=== PATIENT | female | born 1955 | race Caucasian/White ===

== ENCOUNTER 2025-08-18 08:17 | Inpatient (IN) | payer OTHER ==
[~2025-08-18] VITALS: Ht 154.9 cm; Wt 55.8 kg
[2025-08-18 08:40] LABS: PLATELET COUNT (AUTO) 257 K/uL (150-450); RED BLOOD CELL COUNT(AUTO) 3.71 MIL/uL (4.00-5.20); RED CELL DISTRIBUTION WIDTH 16.7 % (11.5-14.5); WHITE BLOOD COUNT (AUTO) 8.9 K/uL (4.5-11.0)
[2025-08-18] MEDS: METOCLOPRAMIDE HCL 5 MG/ML 2 ML VIAL IVP ONE (08:44)
[2025-08-18] MEDS: PANTOPRAZOLE SODIUM 40 MG/VIAL IVP ONE (08:44)
[2025-08-18] MEDS: SODIUM CHLORIDE 0.9% 1,000 ML IV ONE ×2 (08:44→10:17)
[2025-08-18] MEDS: PANTOPRAZOLE SODIUM 80 MG in SODIUM CHLORIDE 0.9% 100 ML IV SCH ×2 (08:49→17:08)
[2025-08-18 08:53] LABS: CALCIUM, TOTAL 7.5 mg/dL (8.8-10.5); CREATININE 0.72 mg/dL (0.60-1.30); GLOMERULAR FILTR. RATE CALC > 60 mL/min (>60); GLUCOSE,RANDOM 183 mg/dL (70-110); SODIUM SERUM 143 mmol/L (136-145); UREA NITROGEN, BLOOD 20 mg/dL (7-18)
[2025-08-18 09:02] LABS: ASPARTATE AMINOTRANSFERASE 16.0 U/L (15-37); TOTAL PROTEIN, SERUM 5.9 g/dL (6.4-8.2)
[2025-08-18] MEDS: LORazepam 2 MG/ML VIAL IVP ONE (10:52)
[2025-08-18] MEDS: OXYMETAZOLINE HCL 0.05% 15 ML NASAL SPRAY NASAL ONE (11:18)
[2025-08-18 12:03] LABS: APPEARANCE,URINE CLEAR (CLEAR); GLUCOSE, URINE (UA) NEGATIVE (NEGATIVE); LEUKOCYTE ESTERASE ,URINE MODERATE (NEGATIVE); NITRATE,URINE POSITIVE (NEGATIVE); OCCULT BLOOD,URINE NEGATIVE (NEGATIVE); SPECIFIC GRAVITIY, URINE 1.021 (1.003-1.030)
[2025-08-18] MEDS: CefTRIAXone 1 GM/DEXTROSE 50 ML IV ONE (12:32)
[2025-08-18] MEDS ORDERED: ALBU18HF12 IH (13:01)
[2025-08-18] MEDS ORDERED: HYDR-4808 PO (13:01)
[2025-08-18] MEDS ORDERED: LISI-892 PO (13:01)
[2025-08-18] MEDS ORDERED: ACET-2247 PO (13:01)
[2025-08-18] MEDS ORDERED: FLUT12AE20 IH (13:01)
[2025-08-18] MEDS ORDERED: DICL100G60 TP (13:01)
[2025-08-18] MEDS ORDERED: HYDR-4062 PO (13:01)
[2025-08-18] MEDS ORDERED: SENN-376 PO (13:01)
[2025-08-18] MEDS ORDERED: LEVE-71 PO (13:01)
[2025-08-18] MEDS ORDERED: PARO-38 PO (13:01)
[2025-08-18] MEDS ORDERED: MAGN-169 PO (13:01)
[2025-08-18] MEDS ORDERED: APIX5TAB PO (13:01)
[2025-08-18] MEDS ORDERED: MELA3TAB89 PO (13:01)
[2025-08-18] MEDS: BACITRACIN 0.9 GM PACKET OINTMENT TP ONE (13:13)
[2025-08-18] MEDS ORDERED: SODIUM CHLORIDE 0.9% 1,000 ML ONE (14:44)
[2025-08-18] MEDS ORDERED: MAGNESIUM HYDROXIDE SUSPENSION 30 ML UDCUP PO PRN (15:45)
[2025-08-18] MEDS ORDERED: ONDANSETRON HCL 4 MG/2 ML VIAL IVP PRN (15:45)
[2025-08-18] MEDS ORDERED: BISACODYL 10 MG RECTAL RECTAL SUPPOSITORY PR PRN (15:45)
[2025-08-18] MEDS ORDERED: ZOLPIDEM TARTRATE 5 MG TABLET PO PRN (15:45)
[2025-08-18 16:00] VITALS: BP 164/66; PULSE 66; PULSE 72; RESP 21; TEMP 99.8; O2SAT 95
[2025-08-18] MEDS ORDERED: MORPHINE SULFATE 4 MG/ML SYRINGE IVP PRN (16:00)
[2025-08-18 20:00] VITALS: BP 148/50; PULSE 75; RESP 21; TEMP 100.6; O2SAT 95
[2025-08-18] MEDS: DOCUSATE SODIUM 100 MG CAPSULE PO SCH (21:00)
[2025-08-18 21:21] LABS: GLUCOMETER DEV NAME(LOC) ICU.S7; GLUCOSE,POINT OF CARE 146 MG/DL (70-110)
[2025-08-19] VITALS: BP 113/43; PULSE 96; RESP 21; TEMP 99.8; O2SAT 97
[2025-08-19 04:00] VITALS: BP 132/71; PULSE 64; PULSE 97; RESP 24; TEMP 98.9; O2SAT 97
[2025-08-19 06:41] LABS: PLATELET COUNT (AUTO) 196 K/uL (150-450); RED BLOOD CELL COUNT(AUTO) 2.87 MIL/uL (4.00-5.20); RED CELL DISTRIBUTION WIDTH 16.2 % (11.5-14.5); WHITE BLOOD COUNT (AUTO) 8.0 K/uL (4.5-11.0)
[2025-08-19 06:59] LABS: CALCIUM, TOTAL 7.9 mg/dL (8.8-10.5); CREATININE 0.66 mg/dL (0.60-1.30); GLOMERULAR FILTR. RATE CALC > 60 mL/min (>60); GLUCOSE,RANDOM 117 mg/dL (70-110); SODIUM SERUM 140 mmol/L (136-145); UREA NITROGEN, BLOOD 18 mg/dL (7-18)
[2025-08-19 08:00] VITALS: BP 120/96; PULSE 73; PULSE 99; RESP 16; TEMP 98.5; O2SAT 99
[2025-08-19] MEDS: CefTRIAXone 1 GM/DEXTROSE 50 ML IV SCH (08:10)
[2025-08-19] MEDS ORDERED: SODIUM CHLORIDE 0.9% 250 ML IV ONE (08:15)
[2025-08-19] MEDS ORDERED: PANTOPRAZOLE SODIUM 40 MG DR TABLET PO SCH (09:00)
[2025-08-19 12:00] VITALS: BP 93/66; PULSE 69; PULSE 99; RESP 14; TEMP 98.9; O2SAT 97
[2025-08-19 16:41] VITALS: BP 108/55; PULSE 92; RESP 16; TEMP 98.6; O2SAT 98
[2025-08-19] MEDS: ACETAMINOPHEN 325 MG TABLET PO PRN (20:19)
[2025-08-19] MEDS: ETHYL ALCOHOL 62% ANTISEPTIC NASAL SANITIZER 0.6 ML AMPUL NASAL SCH (20:23)
[2025-08-19 20:29] VITALS: BP 99/40; PULSE 94; RESP 18; TEMP 97.3; O2SAT 98
[2025-08-20] VITALS (7 sets, daily range): BP systolic 98–132; BP diastolic 53–78; PULSE 80–96; RESP 17–18; TEMP 97.8–98.6; O2SAT 97–99
[2025-08-20] MEDS: POTASSIUM CHLORIDE 20 MEQ ER TABLET PO PRN (00:34)
[2025-08-20] MEDS: HYDROCODONE/ACETAMINOPHEN 5-325 MG TABLET PO PRN (05:37)
[2025-08-20] MEDS ORDERED: SODIUM CHLORIDE 0.9% 500 ML IV ONE (07:37)
[2025-08-20 07:56] LABS: PLATELET COUNT (AUTO) 202 K/uL (150-450); RED BLOOD CELL COUNT(AUTO) 2.71 MIL/uL (4.00-5.20); RED CELL DISTRIBUTION WIDTH 16.3 % (11.5-14.5); WHITE BLOOD COUNT (AUTO) 9.4 K/uL (4.5-11.0)
[2025-08-20 08:05] LABS: CALCIUM, TOTAL 8.5 mg/dL (8.8-10.5); CREATININE 0.74 mg/dL (0.60-1.30); GLOMERULAR FILTR. RATE CALC > 60 mL/min (>60); GLUCOSE,RANDOM 117 mg/dL (70-110); SODIUM SERUM 140 mmol/L (136-145); UREA NITROGEN, BLOOD 18 mg/dL (7-18)
[2025-08-21 03:39] VITALS: BP 102/53; PULSE 82; RESP 18; TEMP 98.6; O2SAT 97
[2025-08-21 05:59] LABS: PLATELET COUNT (AUTO) 201 K/uL (150-450); RED BLOOD CELL COUNT(AUTO) 2.55 MIL/uL (4.00-5.20); RED CELL DISTRIBUTION WIDTH 16.6 % (11.5-14.5); WHITE BLOOD COUNT (AUTO) 8.5 K/uL (4.5-11.0)
[2025-08-21 06:06] LABS: CALCIUM, TOTAL 8.1 mg/dL (8.8-10.5); CREATININE 0.64 mg/dL (0.60-1.30); GLOMERULAR FILTR. RATE CALC > 60 mL/min (>60); GLUCOSE,RANDOM 103 mg/dL (70-110); SODIUM SERUM 145 mmol/L (136-145); UREA NITROGEN, BLOOD 13 mg/dL (7-18)
[2025-08-21 07:27] VITALS: BP 120/58; PULSE 99; RESP 18; TEMP 99.5; O2SAT 97
[2025-08-21 10:51] VITALS: BP 114/80; PULSE 94; RESP 18; TEMP 99; O2SAT 96
[2025-08-21 14:55] VITALS: BP 125/58; PULSE 102; RESP 19; TEMP 98.2; O2SAT 98
[2025-08-21 19:46] VITALS: BP 107/45; PULSE 103; RESP 18; TEMP 99.3; O2SAT 99
[2025-08-21 23:43] VITALS: BP 113/59; PULSE 89; RESP 18; TEMP 99.9; O2SAT 99
[2025-08-22 04:23] VITALS: BP 122/65; PULSE 90; RESP 18; TEMP 98.8; O2SAT 98
[2025-08-22 07:24] VITALS: BP 102/49; PULSE 92; RESP 18; TEMP 98; O2SAT 97
[2025-08-22] MEDS ORDERED: PROPOFOL 1% 20 ML VIAL IVP ONE (12:00)
[2025-08-22 12:42] LABS: PLATELET COUNT (AUTO) 225 K/uL (150-450); RED BLOOD CELL COUNT(AUTO) 2.60 MIL/uL (4.00-5.20); RED CELL DISTRIBUTION WIDTH 16.5 % (11.5-14.5); WHITE BLOOD COUNT (AUTO) 7.4 K/uL (4.5-11.0)
[2025-08-22] MEDS: SODIUM CHLORIDE 0.9% 1,000 ML IV ONE (13:20)
[2025-08-22 13:32] VITALS: BP 134/62; PULSE 94; RESP 18; TEMP 99.5; O2SAT 97
[2025-08-22 17:27] VITALS: TEMP 99.5
[2025-08-22 20:13] VITALS: BP 138/82; PULSE 97; RESP 18; TEMP 99; O2SAT 97
[2025-08-22] MEDS: PANTOPRAZOLE SODIUM 40 MG/VIAL IVP SCH (20:15)
[2025-08-23 00:43] VITALS: BP 136/77; PULSE 107; RESP 18; TEMP 100.6; O2SAT 97
[2025-08-23 05:36] VITALS: BP 112/55; PULSE 73; RESP 16; TEMP 97.9; O2SAT 98
[2025-08-23] MEDS: SODIUM CHLORIDE 0.9% 1,000 ML IV ONE (07:00)
[2025-08-23 07:12] VITALS: BP 115/51; PULSE 74; RESP 18; TEMP 98; O2SAT 98
[2025-08-23 09:14] LABS: PLATELET COUNT (AUTO) 234 K/uL (150-450); RED BLOOD CELL COUNT(AUTO) 2.58 MIL/uL (4.00-5.20); RED CELL DISTRIBUTION WIDTH 16.8 % (11.5-14.5); WHITE BLOOD COUNT (AUTO) 7.8 K/uL (4.5-11.0)
[2025-08-23 09:32] LABS: LACTIC ACID 0.9 mmol/L (0.4-2.0)
[2025-08-23 11:51] VITALS: BP 122/70; PULSE 70; RESP 18; TEMP 98; O2SAT 95
[2025-08-23 16:31] VITALS: BP 117/66; PULSE 92; RESP 17; TEMP 99; O2SAT 99
[2025-08-23 20:00] VITALS: BP 119/58; PULSE 100; RESP 18; TEMP 97.9; O2SAT 98
[2025-08-24 04:20] VITALS: BP 124/70; PULSE 91; RESP 19; TEMP 98.2; O2SAT 96
[2025-08-24 07:46] VITALS: BP 117/57; PULSE 88; RESP 20; TEMP 98.6; O2SAT 97
[2025-08-24] MEDS ORDERED: SODIUM CHLORIDE 0.9% 500 ML IV ONE (08:15)
[2025-08-24 15:47] VITALS: BP 102/53; PULSE 89; RESP 20; TEMP 99; O2SAT 97
[2025-08-24] MEDS: HEPARIN SODIUM,PORCINE 5,000 UNITS/ML VIAL SQ SCH (17:13)
[2025-08-24 20:06] VITALS: BP 105/59; PULSE 85; RESP 18; TEMP 98.1; O2SAT 96
[2025-08-25 04:15] VITALS: BP 111/83; PULSE 91; RESP 18; TEMP 98.3; O2SAT 97
[2025-08-25 07:46] VITALS: BP 120/61; PULSE 78; RESP 18; TEMP 98.2; O2SAT 97
[2025-08-25 20:49] VITALS: BP 115/63; PULSE 80; RESP 18; TEMP 99.9; O2SAT 97
[2025-08-26 04:20] VITALS: BP 101/85; PULSE 78; RESP 18; TEMP 97.7; O2SAT 100
[2025-08-26 07:46] VITALS: BP 109/95; PULSE 79; RESP 18; TEMP 97.5; O2SAT 100
[2025-08-26 08:56] LABS: PLATELET COUNT (AUTO) 392 K/uL (150-450); RED BLOOD CELL COUNT(AUTO) 2.81 MIL/uL (4.00-5.20); RED CELL DISTRIBUTION WIDTH 16.4 % (11.5-14.5); WHITE BLOOD COUNT (AUTO) 5.7 K/uL (4.5-11.0)
[2025-08-26 09:14] LABS: CALCIUM, TOTAL 8.9 mg/dL (8.8-10.5); CREATININE 0.57 mg/dL (0.60-1.30); GLOMERULAR FILTR. RATE CALC > 60 mL/min (>60); GLUCOSE,RANDOM 106 mg/dL (70-110); SODIUM SERUM 141 mmol/L (136-145); UREA NITROGEN, BLOOD 12 mg/dL (7-18)
[2025-08-26 16:00] VITALS: BP 120/77; PULSE 80; RESP 16; TEMP 98.1; O2SAT 100
[2025-08-26 21:07] VITALS: BP 124/53; PULSE 88; RESP 18; TEMP 97.7; O2SAT 100
[2025-08-27 04:32] VITALS: BP 119/65; PULSE 73; RESP 18; TEMP 98.1; O2SAT 100
[2025-08-27 07:30] LABS: PLATELET COUNT (AUTO) 430 K/uL (150-450); RED BLOOD CELL COUNT(AUTO) 2.78 MIL/uL (4.00-5.20); RED CELL DISTRIBUTION WIDTH 16.4 % (11.5-14.5); WHITE BLOOD COUNT (AUTO) 6.5 K/uL (4.5-11.0)
[2025-08-27 07:38] VITALS: BP 105/62; PULSE 76; RESP 18; TEMP 98.2; O2SAT 98
[2025-08-27 07:41] LABS: CALCIUM, TOTAL 8.7 mg/dL (8.8-10.5); CREATININE 0.52 mg/dL (0.60-1.30); GLOMERULAR FILTR. RATE CALC > 60 mL/min (>60); GLUCOSE,RANDOM 100 mg/dL (70-110); SODIUM SERUM 140 mmol/L (136-145); UREA NITROGEN, BLOOD 13 mg/dL (7-18)
[2025-08-27 13:11] LABS: PLATELET COUNT (AUTO) 430 K/uL (150-450); RED BLOOD CELL COUNT(AUTO) 2.76 MIL/uL (4.00-5.20); RED CELL DISTRIBUTION WIDTH 16.5 % (11.5-14.5); WHITE BLOOD COUNT (AUTO) 4.5 K/uL (4.5-11.0)
[2025-08-27] MEDS: FOLIC ACID/VIT B COMPLEX AND C TABLET PO SCH (14:00)
[2025-08-27] MEDS: FERROUS GLUCONATE 324 MG TABLET PO SCH (14:00)
[2025-08-27 16:00] VITALS: BP 111/65; PULSE 75; RESP 18; TEMP 98.4; O2SAT 97
[2025-08-27 19:26] VITALS: BP 100/62; PULSE 82; RESP 18; TEMP 98.1; O2SAT 96
[2025-08-28 04:16] VITALS: BP 126/69; PULSE 79; RESP 18; TEMP 98.1; O2SAT 96
[2025-08-28 08:00] VITALS: BP 133/75; PULSE 82; RESP 19; TEMP 98.1; O2SAT 99
[2025-08-28 09:30] LABS: PLATELET COUNT (AUTO) 483 K/uL (150-450); RED BLOOD CELL COUNT(AUTO) 2.88 MIL/uL (4.00-5.20); RED CELL DISTRIBUTION WIDTH 16.4 % (11.5-14.5); WHITE BLOOD COUNT (AUTO) 4.9 K/uL (4.5-11.0)
[2025-08-28 12:00] VITALS: BP 93/53; RESP 18; O2SAT 99
[2025-08-28] MEDS: PB/HYOSCY/ATR/SCOP/LIDO/MAALOX 55 ML BOTTLE PO ONE (17:24)
[2025-08-28 19:40] VITALS: BP 127/66; PULSE 81; RESP 18; TEMP 98.1; O2SAT 98
[2025-08-29 04:53] VITALS: BP 125/60; PULSE 69; RESP 18; TEMP 97.7; O2SAT 99
[2025-08-29 07:51] VITALS: BP 129/77; PULSE 86; RESP 18; TEMP 97.9; O2SAT 97
[2025-08-29 16:57] VITALS: BP 126/60; PULSE 75; RESP 17; TEMP 98.1; O2SAT 99
[2025-08-29 19:49] VITALS: BP 111/57; PULSE 75; RESP 17; TEMP 98.9; O2SAT 98
[2025-08-29 20:00] VITALS: BP 106/60; PULSE 83; RESP 20; TEMP 98.2; O2SAT 98
[2025-08-30 08:35] VITALS: BP 117/63; PULSE 77; RESP 18; TEMP 98.2; O2SAT 98
[2025-08-30 15:36] VITALS: BP 123/79; PULSE 77; RESP 18; TEMP 98.2; O2SAT 97
[2025-08-30 21:05] VITALS: BP 131/71; PULSE 76; RESP 18; TEMP 98.1; O2SAT 98
[2025-08-31 04:55] VITALS: BP 143/75; PULSE 63; RESP 17; TEMP 97.7; O2SAT 100
[2025-08-31 09:19] VITALS: BP 107/54; PULSE 68; RESP 18; TEMP 97.9; O2SAT 100
[2025-08-31 16:00] VITALS: BP 121/61; PULSE 73; RESP 19; TEMP 98.2; O2SAT 97
[2025-08-31 20:29] VITALS: BP 123/72; PULSE 80; RESP 18; TEMP 98.4; O2SAT 99
[2025-09-01 05:42] VITALS: BP 122/74; PULSE 87; RESP 18; TEMP 98.1; O2SAT 99
[2025-09-01 08:00] VITALS: BP 133/93; PULSE 80; RESP 19; TEMP 98.4; O2SAT 100
[2025-09-01 16:00] VITALS: BP 114/61; PULSE 82; RESP 18; TEMP 98.1; O2SAT 100
[2025-09-01 20:26] VITALS: BP 114/71; PULSE 76; RESP 18; TEMP 97.9; O2SAT 97
[2025-09-02 04:47] VITALS: BP 110/67; PULSE 80; RESP 19; TEMP 98.2; O2SAT 97
[2025-09-02 07:42] VITALS: BP 138/83; PULSE 73; RESP 20; TEMP 98.2; O2SAT 99
[2025-09-02 15:33] VITALS: BP 95/65; PULSE 86; RESP 18; TEMP 98.1; O2SAT 97
[2025-09-02 20:00] VITALS: BP 102/64; PULSE 85; RESP 18; TEMP 97.7; O2SAT 97
[2025-09-03 08:00] VITALS: BP 118/76; PULSE 80; RESP 19; TEMP 98.1; O2SAT 99
[2025-09-03] MEDS ORDERED: FOLI0.8T54 PO (12:01)
[2025-09-03] MEDS ORDERED: FERR324T23 PO (12:01)
[2025-09-03] MEDS ORDERED: PANT-31 PO (12:02)
== END 2025-09-03 15:19 | DRG 377 ==
LOC: EMS 08:19 → EDH 10:40 → ICU 14:25 → 5N 08-19 16:30 → 6S 08-23 16:14 → 4E 08-29 21:10
PROVIDERS: ADMIT Internal Medicine; ATTEND Internal Medicine
PROC: 0DJ08ZZ Inspection of Upper Intestinal Tract, Via Natural or Artificial Opening Endoscopic (ICD-10-PCS; principal; 2025-08-22 11:05)
DX: K29.61 Other gastritis with bleeding (principal); R57.8 Other shock; E44.0 Moderate protein-calorie malnutrition; R56.9 Unspecified convulsions; N39.0 Urinary tract infection, site not specified; K25.4 Chronic or unspecified gastric ulcer with hemorrhage; Z79.01 Long term (current) use of anticoagulants; I69.30 Unspecified sequelae of cerebral infarction; I10 Essential (primary) hypertension; J44.89 Other specified chronic obstructive pulmonary disease; F32.A Depression, unspecified; K44.9 Diaphragmatic hernia without obstruction or gangrene; E78.00 Pure hypercholesterolemia, unspecified; F41.9 Anxiety disorder, unspecified; R04.0 Epistaxis; R79.89 Other specified abnormal findings of blood chemistry; I69.398 Other sequelae of cerebral infarction; Z86.718 Personal history of other venous thrombosis and embolism; Z85.51 Personal history of malignant neoplasm of bladder; Z68.23 Body mass index [BMI] 23.0-23.9, adult; Z88.2 Allergy status to sulfonamides; Z91.040 Latex allergy status; Z91.041 Radiographic dye allergy status; Z92.21 Personal history of antineoplastic chemotherapy; Z92.3 Personal history of irradiation; Z98.2 Presence of cerebrospinal fluid drainage device; Z79.899 Other long term (current) drug therapy
CPT/HCPCS: 51702; 71045; 80048; 80076; 81001; 82962; 83605; 83690; 83735; 84145; 85014; 85018; 85025; 85610; 85730; 86850; 86900; 86901; 87040; 87077; 87081; 87086; 87186; 93005; 93970; 97112; 97162; 97530; 99285; G0378; J0360; J0696; J1644; J2060; J2470; J2704; J2765; J7030; J7040; J7050; 36415-L1; 36415-TC